=== PATIENT | male | born 1960 | race Caucasian/White ===

== ENCOUNTER 2018-01-01 14:19 | Emergency (ER) | payer OTHER ==
[~2018-01-01] VITALS: Ht 177.8 cm; Wt 82.0 kg
[2018-01-01] MEDS ORDERED: BUPIVACAINE/PF 0.5% INFIL ONE (15:00)
[2018-01-01] MEDS ORDERED: LIDOCAINE 1%, 20ML INFIL ONE (15:00)
[2018-01-01] MEDS ORDERED: BUPIVACAINE/PF 0.5% ONE ×2 (15:23→15:27)
[2018-01-01] MEDS ORDERED: LIDOCAINE-MPF 2% ,5ML ONE (15:28)
[2018-01-01] MEDS ORDERED: CEFTRIAXONE PMX 2GM/50ML 0 ML ONE (15:29)
[2018-01-01] MEDS ORDERED: HYDROmorphone 2 MG/ML, 1ML ONE (15:29)
[2018-01-01] MEDS ORDERED: HYDROmorphone/PF 4 MG/ML, 1ML IM PRN (15:30)
[2018-01-01] MEDS ORDERED: CEFAZOLIN PMX 2GM/50ML 50 ML IVPB ONE (15:30)
[2018-01-01 15:32] LABS: BASOPHILS # (AUTO) 0.08 x10^3/uL (0-0.1); BASOPHILS % (AUTO) 1 % (0-1); EOSINOPHILS # (AUTO) 0.26 x10^3/uL (0-0.4); EOSINOPHILS % (AUTO) 3 % (1-7); LYMPHOCYTES # (AUTO) 3.56 x10^3/uL (1-3.4); LYMPHOCYTES % (AUTO) 36 % (22-44); MD NO; MEAN CORPUSCULAR HEMOGLOBIN 30.6 pg (27.5-34.5); MEAN CORPUSCULAR HGB CONC 33.9 g/dL (33.2-36.2); MEAN CORPUSCULAR VOLUME 90.2 fL (81-97); MEAN PLATELET VOLUME 8.5 fL (7.4-10.4); MONOCYTES # (AUTO) 1.15 x10^3/uL (0.2-0.8); MONOCYTES % (AUTO) 12 % (2-9); NEUTROPHILS # (AUTO) 4.74 x10^3/uL (1.8-6.8); NEUTROPHILS % (AUTO) 48 % (42-75); PLATELET COUNT 377 x10^3/uL (130-400); RED BLOOD COUNT 5.57 x10^6/uL (4.38-5.82); RED CELL DISTRIBUTION WIDTH 14.2 % (9.4-14.8)
[2018-01-01 15:41] LABS: ALANINE AMINOTRANSFERASE 25 U/L (12-78); ALBUMIN 3.7 g/dL (3.4-5.0); ANION GAP 9 mmol/L (5-15); CALCIUM 8.2 mg/dL (8.5-10.1); CHLORIDE 107 mmol/L (98-107); CREATININE 0.85 mg/dL (0.7-1.3)
[2018-01-01 15:44] LABS: ALKALINE PHOSPHATASE 103 U/L (45-117); BILIRUBIN,TOTAL 0.6 mg/dL (0.2-1.0); TOTAL PROTEIN 7.3 g/dL (6.4-8.2)
[2018-01-01 15:59] LABS: INTERNATIONAL NORMALIZED RATIO 1.01 (0.93-1.1); PROTHROMBIN TIME 10.4 Seconds (9.6-11.5)
[2018-01-01 17:50] VITALS: BP 144/93
== END 2018-01-01 18:39 | disposition home or self-care (01) ==
LOC: ED 16:37
DX: S62.524A Nondisplaced fracture of distal phalanx of right thumb, initial encounter for closed fracture (principal); W23.0XXA Caught, crushed, jammed, or pinched between moving objects, initial encounter; Y93.89 Activity, other specified; Y92.89 Other specified places as the place of occurrence of the external cause; Y99.8 Other external cause status; R79.1 Abnormal coagulation profile
CPT/HCPCS: 13132; 36415; 73140; 80053; 85025; 85610; 85730; 96365; 96372; 99285; J0690; J1170; J3490